=== PATIENT | female | born 1945 | race Caucasian/White ===

== ENCOUNTER 2019-12-08 10:27 | Emergency (ER) | payer OTHER ==
[2019-12-08 10:40] VITALS: TEMP 98.4; BMI 31.7
--- NOTE | 2019-12-08 10:45 | PDOC ---
Rapid Medical Evaluation Chief Complaint: Blood Pressure Problem Time Seen by Provider: 12/08/19 10:38 Medical Evaluation: Allergies Allergy/AdvReac Type Severity Reaction Status Date / Time Penicillins Allergy Verified 09/12/15 12:25 12/08/19 10:38 Patient is 74F with history of HTN, CHF, DM here today with asymptomatic hypertension. Sent in from GI doctor office for high blood pressure readings. Patient has prescription for CT A/P, abdominal labs, cdiff, stool ova and parasites. Does not complain of abdominal pain at this time. RRR, CTAB, no edema Vitals normal. Patient to main ED. Discharge Disposition - Diagnosis Hypertension - Discharge Dispostion Condition at time of disposition: Stable - Referrals - Patient Instructions - Post Discharge Activity
--- NOTE | 2019-12-08 11:26 | PDOC ---
History of Present Illness - General Chief Complaint: Blood Pressure Problem Stated Complaint: HIGH BP Time Seen by Provider: 12/08/19 10:38 - History of Present Illness Initial Comments: 12/08/19 12:50 74 y/o F hx of CHF, HTN, DM, vertigo presents to the ER from GI doctor's office with hypertension to 214/89. She was at her GI's office for a workup for abdominal pain, nausea and loose stools over the last 3 weeks. Pt. reports not taking her morning dose of medication, prior to office visit. She denies any headache, vertigo, blurry vision, lack of appetite, fevers, chills, at this time. 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 Pedraaz Nephro: Dr. Matias. GI: Dr. Holden Past History - Past Medical History Allergies/Adverse Reactions: Allergies Allergy/AdvReac Type Severity Reaction Status Date / Time Penicillins Allergy Verified 12/08/19 11:25 Home Medications: Ambulatory Orders Amlodipine Bes/Olmesartan Med [Akshat 10-40 mg Tablet] 1 each PO DAILY 09/13/15 Clonidine HCl [Clonidine HCl ER] 0.1 mg PO BID 09/13/15 Cyclopentolate HCl [Cyclogyl] 15 ml OP TID 09/13/15 Esomeprazole Mag Trihydrate [Nexium] 40 mg PO DAILY 09/13/15 Furosemide [Lasix -] 40 mg PO DAILY 09/13/15 Insulin Aspart Prot/Insuln Asp [Novolog Mix 70-30 Flexpen Syrn] 45 unit SQ ACDIN 09/13/15 Tramadol HCl 50 mg PO Q8H 09/13/15 Cancer: No Cardiac Disorders: Yes CVA: No COPD: No CHF: Yes ("WATER ON LUNGS") Dementia: No Diabetes: Yes GI Disorders: No Disorders: No HTN: Yes Hypercholesterolemia: Yes Liver Disease: No Seizures: No Thyroid Disease: No - Surgical History Cardiac Surgery: Yes (STENT) - Immunization History Immunization Up to Date: No - Psycho Social/Smoking Cessation Hx Smoking History: Never smoked Have you smoked in the past 12 months: No Information on smoking cessation initiated: No Hx Alcohol Use: No Drug/Substance Use Hx: No Substance Use Type: None Review of Systems - Review of Systems Constitutional: No: Chills, Fever HEENTM: No: Eye Pain, Blurred Vision Respiratory: No: Cough, Shortness of Breath Cardiac (ROS): Yes: Edema. No: Chest Pain ABD/GI: Yes: Nausea : No: Burning, Dysuria Musculoskeletal: No: Back Pain Integumentary: No: Bruising, Change in Color Neurological: No: Headache, Numbness *Physical Exam - Vital Signs Last Vital Signs Temp Pulse Resp BP Pulse Ox 98.4 F 83 16 214/89 H 97 12/08/19 10:36 12/08/19 10:36 12/08/19 10:36 12/08/19 10:36 12/08/19 10:36 - Physical Exam 12/08/19 12:40 GENERAL: Awake, alert, and fully oriented, in no acute distress HEAD: No signs of trauma, normocephalic, atraumatic. EYES: PERRL EOMI, sclera anicteric, conjunctiva clear ENT: Auricles normal inspection, hearing grossly normal, nares patent, oropharyn x clear without exudates. Moist mucosa NECK: Normal ROM, supple, no lymphadenopathy, JVD, or masses LUNGS: No distress, speaks full sentences, mildly decreased breath sounds in upper left lung field HEART: Regular rate and rhythm, normal S1 and S2, no murmurs, rubs or gallops, peripheral pulses normal and equal bilaterally. ABDOMEN: Soft, epigastric and LLQ tenderness. normoactive bowel sounds. No guarding, no rebound. No masses EXTREMITIES : Normal inspection, Normal range of motion, trace edema. No clubbing or cyanosis NEUROLOGICAL: Cranial nerves II through XII grossly intact. Normal speech, normal gait, no focal sensorimotor deficits SKIN: Warm, Dry, normal turgor, no rashes or lesions noted Medical Decision Making - Medical Decision Making 12/08/19 12:33 74 y/o F hx of CHF, HTN, DM, vertigo presents to the ER from GI doctor's office with hypertension to not lightheaded, vertiginous, weak,no blurry vision Pt did not take her morning dose of medications given the equivalent of her home dose here will feed her Reassess after the above interventions. 12/08/19 12:42 12/08/19 12:45 EKG: normal sinus rhythm, normal EKG 12/08/19 12:49 12/08/19 12:50 12/08/19 13:09 Pt's blood pressure in the 180's systolic. dispo Discharge - Discharge Information Problems reviewed: Yes Clinical Impression/Diagnosis: Hypertension Qualifiers: Hypertension type: unspecified Qualified Code(s): I10 - Essential (primary) hypertension Condition: Stable Disposition: HOME - Follow up/Referral Referrals: Dion Pedraza [Primary Care Provider] - - Patient Discharge Instructions Patient Printed Discharge Instructions: DI for High Blood Pressure Additional Instructions: Please take your blood pressure medications as indicated tonight. Please call Dr. Holden's office to make your follow up appointment. Please make sure you take your blood pressure medications when you are about to undergo a procedure unless explicitly told not to. Please see your PCP within one week. Please return to the ED if you have new or worsening symptoms. - Post Discharge Activity
[2019-12-08] MEDS ORDERED: amLODIPine BESYLATE 5 MG TABLET (FP) PO ONE (12:10)
[2019-12-08] MEDS ORDERED: amLODIPine BESYLATE 5 MG TABLET (FP) ONE (12:28)
[2019-12-08] MEDS ORDERED: VALSARTAN 80 MG TABLET (UD) ONE (12:28)
[2019-12-08] MEDS ORDERED: amLODIPine BESYLATE 10 MG TABLET (FP) PO SCH (12:30)
[2019-12-08] MEDS ORDERED: VALSARTAN 160 MG TABLET (UD) PO SCH (12:30)
--- NOTE | 2019-12-08 13:16 | PDOC ---
Attending Attestation - Resident Resident Name: Magalis Douglas - ED Attending Attestation I have performed the following: I have examined & evaluated the patient, The case was reviewed & discussed with the resident, I agree w/resident's findings & plan - HPI HPI: 12/08/19 13:10 74-year-old female with history of hypertension and renal insufficiency presents referred to ED from GI office for elevated blood pressure. Patient normally has controlled blood pressure on amlodipine and losartan, skipped doses this morning because she was instructed to be n.p.o., on routine evaluation at GI office blood pressure was noted to be 237/98, referred to ED. Patient does not report any related symptoms of headache/vision change/speech change/neck pain/chest pain/shortness of breath/nausea/vomiting/focal deficit. On review of systems, patient does report various nonspecific complaints of nighttime blurry vision, occasional headaches that have been going on for months , not associated with elevated blood pressures. - Physicial Exam PE: 12/08/19 13:12 BP 214/89 at triage, 198/68 on my evaluation Patient is well-appearing, obese, seated comfortably in stretcher speaking full sentences Pupils are equal round reactive to light, extraocular movements are intact No JVD, neck supple Heart is regular, lungs are clear Trace pretibial edema to the mid lower leg, no calf tenderness, 2+ distal pulses - Medical Decision Making 12/08/19 13:12 74-year-old female here after referral for hypertensive urgency, elevated blood pressure without signs or symptoms of endorgan injury. Exam is normal, history is reassuring. No indication for emergent evaluation Patient given doses of her baseline morning medications Trend blood pressure, disposition accordingly Heart Score/ECG Review #1 ECG reviewed & interpreted by me at: 11:17 General ECG Interpretation: Sinus Rhythm, Normal Rate (79), Normal Intervals ( qtc 440), No acute ischemic changes
[2019-12-08 13:39] VITALS: BP 188/62; PULSE 64
--- NOTE | 2019-12-09 10:46 | EKG ---
Test Reason : Blood Pressure : / mmHG Vent. Rate : 079 BPM Atrial Rate : 079 BPM P-R Int : 136 ms QRS Dur : 080 ms QT Int : 384 ms P-R-T Axes : 060 -16 056 degrees QTc Int : 440 ms NORMAL SINUS RHYTHM NORMAL ECG NO PREVIOUS ECGS AVAILABLE Confirmed by WING CASTRO, KO ([id number]) on 12/09/2019 10:45:37 AM Referred By: Confirmed By:KO DIMAS MD
== END 2019-12-08 14:10 | disposition home or self-care (01) ==
LOC: JER 10:27
DX: I10 Essential (primary) hypertension (principal); I25.10 Atherosclerotic heart disease of native coronary artery without angina pectoris; I13.0 Hypertensive heart and chronic kidney disease with heart failure and stage 1 through stage 4 chronic kidney disease, or unspecified chronic kidney disease; N18.9 Chronic kidney disease, unspecified; I50.9 Heart failure, unspecified; Z95.5 Presence of coronary angioplasty implant and graft; E11.22 Type 2 diabetes mellitus with diabetic chronic kidney disease; Z79.4 Long term (current) use of insulin; E78.00 Pure hypercholesterolemia, unspecified
CPT/HCPCS: 93005; 93010; 99283-25